=== PATIENT | female | born 1950 | race Hispanic/Latino ===

== ENCOUNTER 2018-01-11 09:29 | Emergency (ER) | payer MEDICARE ==
[2018-01-11] MEDS ORDERED: HYDROCODONE/ACETAMINOPHEN 10/325 MG TAB ONE (09:58)
== END 2018-01-11 12:03 | disposition home or self-care (01) ==
LOC: EDH 09:29
DX: S13.4XXA Sprain of ligaments of cervical spine, initial encounter (principal); S80.01XA Contusion of right knee, initial encounter; S09.8XXA Other specified injuries of head, initial encounter; E11.9 Type 2 diabetes mellitus without complications; I10 Essential (primary) hypertension; Z88.0 Allergy status to penicillin; Z79.4 Long term (current) use of insulin; W18.39XA Other fall on same level, initial encounter; Y93.89 Activity, other specified; Y92.89 Other specified places as the place of occurrence of the external cause; Y99.8 Other external cause status
CPT/HCPCS: 70450; 72125; 73562

== ENCOUNTER 2018-01-13 10:00 | Inpatient (IN) | payer MEDICARE ==
[~2018-01-13] VITALS: Ht 157.5 cm; Wt 48.3 kg
[2018-01-13] MEDS ORDERED: ONDANSETRON HCL MDV 20ML 2 MG/ML VIAL ONE (10:23)
[2018-01-13] MEDS ORDERED: SODIUM CHLORIDE 0.9% 1000ML 1,000 ML IV ONE (10:23)
[2018-01-13 10:25] LABS: BASOPHILS % (AUTO) 0.5 % (0.0-5.0); EOSINOPHILS % (AUTO) 0.3 % (0.0-8.0); HEMATOCRIT 37.2 % (36-48); LYMPHOCYTES % (AUTO) 4.7 % (21.0-51.0); MEAN CORPUSCULAR HEMOGLOBIN 30.7 pg (27.0-33.0); MEAN CORPUSCULAR HGB CONC 35.2 g/dL (32.0-36.0); MEAN CORPUSCULAR VOLUME 87.2 fL (79-99); MONOCYTES % (AUTO) 4.6 % (3.0-13.0); NEUTROPHILS % (AUTO) 89.9 % (40.0-77.0); PLATELET COUNT (AUTO) 254 K/uL (130-400); RED BLOOD CELL COUNT(AUTO) 4.27 MIL/uL (4.00-5.50); RED CELL DISTRIBUTION WIDTH 13.1 % (11.0-15.5); WHITE BLOOD COUNT (AUTO) 14.9 K/uL (4.8-10.8)
[2018-01-13 10:39] LABS: ALBUMIN 3.9 g/dL (3.5-5.0); BILIRUBIN,DIRECT 0.1 mg/dL (0.0-0.3); BILIRUBIN,TOTAL 0.5 mg/dL (0.2-1.0); CREATININE 3.7 mg/dL (0.5-1.5); POTASSIUM 3.7 mmol/L (3.5-5.1); TOTAL PROTEIN, SERUM 8.8 g/dL (6.0-8.3)
[2018-01-13 11:04] LABS: APPEARANCE,URINE Clear (CLEAR); BILIRUBIN,URINE Negative (NEGATIVE); COLOR,URINE Yellow (YELLOW); GLUCOSE, URINE (UA) TRACE mg/dL (NEGATIVE); KETONES,URINE Negative (NEGATIVE); LEUKOCYTE ESTERASE ,URINE Negative (NEGATIVE); NITRATE,URINE Negative (NEGATIVE); OCCULT BLOOD,URINE Negative (NEGATIVE); PH,URINE 5.5 (5.0-8.0); PROTEIN,URINE POS 1+ (NEGATIVE); UROBILINOGEN,URINE 0.2 mg/dL (0.2-1.0)
[2018-01-13 11:18] LABS: AMORPHOUS SEDIMENT,UR Trace /LPF (None Seen); BACTERIA,URINE Rare /HPF (None Seen); RBC,URINE None Seen /HPF (0-1); SQUAMOUS EPITHELIAL CELL,UR Rare /HPF (0-2); WBC,URINE None Seen /HPF (0-1)
[2018-01-13 16:00] VITALS: BP 142/74
[2018-01-13] MEDS ORDERED: RENAL DOSE IV PRN (17:30)
[2018-01-13] MEDS ORDERED: ACETAMINOPHEN 325 MG TAB PO PRN (17:30)
[2018-01-13] MEDS ORDERED: LEVOFLOXACIN 500 MG/D5W 100 ML 100 ML IV SCH (18:00)
[2018-01-13 19:00] VITALS: BP 142/73
[2018-01-13] MEDS ORDERED: ONDANSETRON HCL MDV 20ML 2 MG/ML VIAL IVP PRN (19:15)
[2018-01-13] MEDS ORDERED: OMEP40CA37 PO ×2 (20:14)
[2018-01-13] MEDS ORDERED: SODI650T PO ×2 (20:14)
[2018-01-13] MEDS ORDERED: CALC-1153 PO ×2 (20:14)
[2018-01-13] MEDS ORDERED: ATOR40TA69 PO ×2 (20:14)
[2018-01-13] MEDS ORDERED: AMLO10TA2 PO ×2 (20:14)
[2018-01-13] MEDS ORDERED: DICL4100G TP ×2 (20:14)
[2018-01-13] MEDS ORDERED: GABA-529 PO ×2 (20:14)
[2018-01-13] MEDS ORDERED: AEC81 PO ×2 (20:14)
[2018-01-13] MEDS ORDERED: PATI8.4P PO ×2 (20:14)
[2018-01-13] MEDS ORDERED: TYL3 PO ×2 (20:14)
[2018-01-13] MEDS ORDERED: FERS325 PO ×2 (20:14)
[2018-01-13] MEDS ORDERED: FOLI1TAB85 PO ×2 (20:14)
[2018-01-13] MEDS: SODIUM CHLORIDE 0.9% 1000ML 1,000 ML IV SCH (20:26)
[2018-01-13] MEDS: INSULIN HUMULIN R 100 UNIT/ML 3ML SQ SCH (20:55)
[2018-01-13] MEDS ORDERED: DEXTROSE 50%-WATER 50 ML DISP.SYRIN IV PRN (21:00)
[2018-01-13] MEDS ORDERED: GLUCAGON 1MG KIT 1 MG ML IM PRN (21:00)
[2018-01-13 23:00] VITALS: BP 131/64
[2018-01-14 03:00] VITALS: BP 137/70
[2018-01-14] MEDS: SODIUM CHLORIDE 0.9% 1000ML 1,000 ML IV SCH ×3 (06:16→23:26)
[2018-01-14] MEDS: INSULIN HUMULIN R 100 UNIT/ML 3ML SQ SCH ×4 (06:27→20:42)
[2018-01-14 06:30] LABS: HEMATOCRIT 29.8 % (36-48); MEAN CORPUSCULAR HEMOGLOBIN 31.3 pg (27.0-33.0); MEAN CORPUSCULAR HGB CONC 35.8 g/dL (32.0-36.0); MEAN CORPUSCULAR VOLUME 87.5 fL (79-99); PLATELET COUNT (AUTO) 207 K/uL (130-400); RED BLOOD CELL COUNT(AUTO) 3.41 MIL/uL (4.00-5.50); RED CELL DISTRIBUTION WIDTH 13.2 % (11.0-15.5); WHITE BLOOD COUNT (AUTO) 8.2 K/uL (4.8-10.8)
[2018-01-14 06:51] LABS: HEMOGLOBIN A1C 8.5 % (4.0-6.0)
[2018-01-14 06:59] LABS: CREATININE 3.1 mg/dL (0.5-1.5); MAGNESIUM 1.7 mg/dL (1.80-2.40); POTASSIUM 3.5 mmol/L (3.5-5.1); THYROID STIMULATING HORMONE 1.01 uIU/mL (0.36-3.74)
[2018-01-14 07:55] VITALS: BP 142/62
[2018-01-14] MEDS: PANTOPRAZOLE SODIUM 40 MG TABLET.DR PO SCH (10:10)
[2018-01-14] MEDS ORDERED: INSU100I21 SQ ×2 (10:42)
[2018-01-14 12:00] VITALS: BP 145/74
[2018-01-14 16:00] VITALS: BP 185/83
[2018-01-14 19:00] VITALS: BP 158/71
[2018-01-14] MEDS ORDERED: LACTULOSE 20 GM/30 ML UDCUP PO PRN (19:45)
[2018-01-14] MEDS: GABAPENTIN 100 MG CAPSULE PO SCH (20:41)
[2018-01-14] MEDS: SODIUM BICARBONATE 650 MG TAB PO SCH (20:41)
[2018-01-14] MEDS: [UNRECOGNIZED DRUG - OTHER] PO SCH (20:49)
[2018-01-14] MEDS: CALCIUM CITRATE PO SCH (20:49)
[2018-01-14] MEDS: VITAMIN D3 PO SCH (20:49)
[2018-01-14] MEDS ORDERED: ATORVASTATIN CALCIUM 40 MG TABLET PO SCH (21:00)
[2018-01-14 23:00] VITALS: BP 159/70
[2018-01-15] MEDS: SODIUM CHLORIDE 0.9% 1000ML 1,000 ML IV SCH ×2 (02:51→09:30)
[2018-01-15 03:00] VITALS: BP 176/75
[2018-01-15 05:41] VITALS: BP 164/73
[2018-01-15] MEDS: INSULIN HUMULIN R 100 UNIT/ML 3ML SQ SCH ×2 (06:15→12:02)
[2018-01-15] MEDS ORDERED: HYDRALAZINE HCL 20 MG/ML VIAL IV PRN (06:15)
[2018-01-15 06:37] LABS: CREATININE 2.8 mg/dL (0.5-1.5); MAGNESIUM 1.6 mg/dL (1.80-2.40); POTASSIUM 3.5 mmol/L (3.5-5.1)
[2018-01-15] MEDS ORDERED: INSULIN GLARGINE 100 UNITS/ML 10 ML VIAL SQ SCH (07:30)
[2018-01-15 08:00] VITALS: BP 150/69
[2018-01-15] MEDS ORDERED: FOLIC ACID/VITAMIN B COMP W-C 1 MG CAPSULE PO SCH (09:00)
[2018-01-15] MEDS ORDERED: AMLODIPINE BESYLATE 5 MG TAB PO SCH (09:00)
[2018-01-15] MEDS: VITAMIN D3 PO SCH (09:00)
[2018-01-15] MEDS ORDERED: ASPIRIN 81 MG EC TAB PO SCH (09:00)
[2018-01-15] MEDS ORDERED: FERROUS SULFATE 325 MG TABLET.DR PO SCH (09:00)
[2018-01-15] MEDS: [UNRECOGNIZED DRUG - OTHER] PO SCH (09:00)
[2018-01-15] MEDS: CALCIUM CITRATE PO SCH (09:00)
[2018-01-15] MEDS ORDERED: PATIROMER CALCIUM SORBITEX 8.4 GM PO SCH (09:00)
[2018-01-15] MEDS: GABAPENTIN 100 MG CAPSULE PO SCH ×2 (09:39→15:04)
[2018-01-15] MEDS: PANTOPRAZOLE SODIUM 40 MG TABLET.DR PO SCH (09:39)
[2018-01-15] MEDS: SODIUM BICARBONATE 650 MG TAB PO SCH (09:39)
[2018-01-15 11:00] VITALS: BP 159/74
[2018-01-15] MEDS ORDERED: MAGNESIUM 2GM PREMIX 50ML 50 ML IV SCH (13:45)
[2018-01-15] MEDS ORDERED: LEVO250T2 PO ×2 (15:51)
[2018-01-15 16:00] VITALS: BP 143/73
[2018-01-15] MEDS ORDERED: LEVOFLOXACIN 250 MG/D5W 50ML 50 ML IVPB SCH (18:00)
[2018-01-15 19:55] VITALS: BP 166/75
[2018-01-16 06:16] LABS: VITAMIN D, 25-HYDROXY 17.2 ng/mL (30.0-100.0)
== END 2018-01-15 20:20 | disposition home or self-care (01) | DRG 682 ==
LOC: EDH 10:00 → 3BH 15:53
PROVIDERS: ADMIT Family Medicine; ATTEND Family Medicine
DX: N17.0 Acute kidney failure with tubular necrosis (principal); J18.9 Pneumonia, unspecified organism; E11.22 Type 2 diabetes mellitus with diabetic chronic kidney disease; E83.52 Hypercalcemia; I12.9 Hypertensive chronic kidney disease with stage 1 through stage 4 chronic kidney disease, or unspecified chronic kidney disease; N18.4 Chronic kidney disease, stage 4 (severe); E86.0 Dehydration; Z83.3 Family history of diabetes mellitus; Z82.49 Family history of ischemic heart disease and other diseases of the circulatory system
CPT/HCPCS: 36415; 70450; 71250; 72125; 73562; 74176; 80048; 80076; 81001; 82306; 82330; 82550; 82652; 82948; 83036; 83690; 83735; 83970; 84443; 84484; 85025; 85027; 87804; 93005; 97039; J0360; J1815; J1956; J3475; J7030

== ENCOUNTER 2020-03-05 19:58 | Emergency (ER) | payer MEDICARE ==
[~2020-03-05 19:58] MED LIST: AEC81 PO; AMLO-258 PO; ATOR40TA69 PO; CALC-1153 PO; DICL4100G TP; FERS325 PO; FOLI1TAB85 PO; GABA-529 PO; INSU100I21 SQ; LEVO250T2 PO; OMEP40CA13 PO; PATI8.4P PO; SODI650T PO; TYL3 PO
[2020-03-05] MEDS ORDERED: HYDROCODONE/ACETAMINOPHEN 5/325 MG TAB ONE (20:31)
== END 2020-03-05 22:39 | disposition home or self-care (01) ==
LOC: EDH 19:58
DX: S42.201A Unspecified fracture of upper end of right humerus, initial encounter for closed fracture (principal); S63.502A Unspecified sprain of left wrist, initial encounter; E11.9 Type 2 diabetes mellitus without complications; I10 Essential (primary) hypertension; Z91.018 Allergy to other foods; Z88.0 Allergy status to penicillin; W18.39XA Other fall on same level, initial encounter; Y93.01 Activity, walking, marching and hiking; Y92.89 Other specified places as the place of occurrence of the external cause; Y99.8 Other external cause status
CPT/HCPCS: 73030; 73060; 73110; 93005

== ENCOUNTER 2022-10-09 12:25 | Emergency (ER) | payer MEDICARE ==
[~2022-10-09] VITALS: Ht 152.4 cm; Wt 56.7 kg
[~2022-10-09 12:25] MED LIST changes: -OMEP40CA13 PO; +OMEP40CA21 PO
[2022-10-09 14:24] LABS: BASOPHILS % (AUTO) 0.5 % (0.0-5.0); HEMATOCRIT 32.4 % (36-48); LYMPHOCYTES % (AUTO) 17.5 % (21.0-51.0); MEAN CORPUSCULAR HEMOGLOBIN 30.5 pg (27.0-33.0); MEAN CORPUSCULAR HGB CONC 34.9 g/dL (32.0-36.0); MEAN CORPUSCULAR VOLUME 87.3 fL (79-99); MONOCYTES % (AUTO) 6.2 % (3.0-13.0); NEUTROPHILS % (AUTO) 72.9 % (40.0-77.0); PLATELET COUNT (AUTO) 250 K/uL (130-400); RED BLOOD CELL COUNT(AUTO) 3.71 MIL/uL (4.00-5.50); WHITE BLOOD COUNT (AUTO) 9.2 K/uL (4.8-10.8)
[2022-10-09 14:34] LABS: CREATININE 4.6 mg/dL (0.5-1.5)
[2022-10-09 14:38] LABS: ALBUMIN 3.3 g/dL (3.5-5.0); TOTAL PROTEIN, SERUM 7.4 g/dL (6.0-8.3)
[2022-10-09] MEDS ORDERED: MAG/ALUM/SIMETH 30 ML UDCUP PO ONE (15:30)
[2022-10-09 16:47] VITALS: BP 137/58
== END 2022-10-09 16:55 | disposition home or self-care (01) ==
LOC: EDH 12:25
DX: R09.89 Other specified symptoms and signs involving the circulatory and respiratory systems (principal); K59.00 Constipation, unspecified; E11.9 Type 2 diabetes mellitus without complications; I10 Essential (primary) hypertension; Z79.1 Long term (current) use of non-steroidal anti-inflammatories (NSAID); Z79.82 Long term (current) use of aspirin; Z79.899 Other long term (current) drug therapy; Z88.0 Allergy status to penicillin; Z91.018 Allergy to other foods
CPT/HCPCS: 36415; 71045; 80053; 84484; 85025; 93005